=== PATIENT | male | born 1975 | race Caucasian/White ===

== ENCOUNTER 2016-08-20 06:06 | Emergency (ER) | payer MEDICARE | END 2016-08-20 06:45 | disposition short-term general hospital (02) | LOC: ER 06:06 | DX: I61.9 Nontraumatic intracerebral hemorrhage, unspecified (principal); I10 Essential (primary) hypertension; F17.210 Nicotine dependence, cigarettes, uncomplicated; Z88.1 Allergy status to other antibiotic agents | CPT/HCPCS: 36415; 51702; 96374; 96375; G0480; J0330 ==